=== PATIENT | male | born 1960 | race Caucasian/White ===

== ENCOUNTER 2025-07-01 08:30 | Emergency (ER) | payer SELFPAY ==
[2025-07-01] VITALS (8 sets, daily range): BP systolic 116–176; BP diastolic 74–99; PULSE 69; O2SAT 99; BMI 23.1
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
[2025-07-01 10:27] LABS: Hematocrit 45.1 % (39.0-52.0); Hemoglobin 15.8 g/dL (13.0-18.0); Mean Corp Hgb Conc. 35.0 g/dL (33.0-37.0); Mean Corpuscular Volume 82.3 fL (80.0-94.0); Nucleated Red Blood Cells % 0 % (-); Platelet Count 251 10^3/uL (130-400); Red Cell Dist. Width 13.5 % (11.5-14.5)
[2025-07-01 10:51] LABS: ALT (SGPT) 17 U/L (0-50); AST (SGOT) 16 U/L (17-59); Albumin 4.3 g/dl (3.5-5.0); Alkaline Phosphatase 65 U/L (38-126); Blood Urea Nitrogen 16 mg/dl (9-20); Calcium 9.3 mg/dl (8.4-10.2); Carbon Dioxide 24 mmol/L (22-30); Chloride 109 mmol/L (98-107); Estimated Creatinine Clearance 88 ml/min; Glucose 89 mg/dl (70-99); Potassium 4.1 mmol/L (3.5-5.1); Sodium 138 mmol/L (135-145); Total Protein 6.7 g/dl (6.3-8.2); eGFR > 60.00
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
[2025-07-01] MEDS: COMPAZINE 10 MG IV (11:43)
[2025-07-01 12:12] LABS: HDL Cholesterol 56 mg/dl; LDL Cholesterol, Calculated 152 mg/dl; Very Low Density Lipoprotein 19 mg/dl (0-30)
[2025-07-01 12:43] LABS: TSH 1.44 uIU/ml (0.47-4.68)
[2025-07-01 13:00] LABS: Glycohemoglobin (HgbA1c) 5.6 % (4.0-5.6)
[2025-07-01 13:04] LABS: Vitamin B12 422 pg/ml (239-931)
[2025-07-01 13:36] LABS: Folate 6.9 ng/ml (2.76-20); Vitamin B12 437 pg/ml (239-931)
--- NOTE | 2025-07-01 14:35 | EDRN ---
PT here to evaluate.
[2025-07-01 20:14] LABS: Ferritin 53.2 ng/ml (17.9-464.0)
== END 2025-07-01 14:55 | disposition home or self-care (01) ==
LOC: EMR 08:30
PROVIDERS: Registered Nurse; CONSULT PHYSICIAN Psychiatry & Neurology Neurology; EMERGENCY PHYSICIAN Student in an Organized Health Care Education/Training Program
DX: R42 Dizziness and giddiness (principal); I25.10 Atherosclerotic heart disease of native coronary artery without angina pectoris; I25.2 Old myocardial infarction; N40.0 Benign prostatic hyperplasia without lower urinary tract symptoms; F17.200 Nicotine dependence, unspecified, uncomplicated; Z79.82 Long term (current) use of aspirin; Z95.5 Presence of coronary angioplasty implant and graft
CPT/HCPCS: 99284; 96374; 70450; 70496; 70498; 71046; 80053; 80061; 82607; 82728; 82746; 83036; 84439; 84443; 85025; 85652; 93005; Q9967